=== PATIENT | female | born 1970 | race Caucasian/White ===

== ENCOUNTER → 2017-02-03 | Outpatient (CLI) | payer MEDICAID ==
[~2017-02-03] MED LIST: ACID REDUCER10 MG PO; ALPRAZOLAM1 MG PO; AMOXICILLIN 50500 MG PO; BUTRANS10 MCG/HR TD; COPAXONE40 MG/ML SC; CYCLOBENZAPRINE10 MG PO; DIFLUCAN150 MG PO; FIORICET1 CAP PO; LISINOPRIL 20MG20 MG PO; NORCO1 TAB PO; ONDANSETRON8 M1 PO; ZOFRAN ODT4 MG PO
[2017-02-03 16:30] LABS: AMPHETAMINES/METAMPHETAMINES NEGATIVE ng/mL (<1000)
[2017-02-09 16:37] LABS: Alprazolam Negative (Cutoff=100); Benzodiazepines Negative ng/mL (Cutoff=100); Clonazepam Negative (Cutoff=100); Flurazepam Negative (Cutoff=100); Lorazepam Negative (Cutoff=100); Midazolam Negative (Cutoff=100); Temazepam Negative (Cutoff=100); Triazolam Negative (Cutoff=100)
== END ==
LOC: LAB 15:45
PROVIDERS: Emergency Medicine
DX: Z79.899 Other long term (current) drug therapy (principal)
CPT/HCPCS: G0480